=== PATIENT | male | born 1945 | race Caucasian/White ===

== ENCOUNTER → 2021-08-26 | Day surgery (SDC) | payer MEDICARE, BC ==
[~2021-08-26] MED LIST: Adenosine 6 MG/2 ML VIAL ONE; Fentanyl 100 MCG/2 ML VIAL ONE; Heparin 10,000 UNITS/ 10 ML VIAL ONE; Iopamidol 300 61% 100 ML VIAL FS ONE; Lidocaine 1% (PF) 30 ML VIAL ONE; Midazolam HCl 2 mg/2 ml Vial ONE; Nitroglycerin 50 MG/250 ML BOT 0 ML ONE; Sacubitril 49 MG/Valsartan 51 MG TABLET PO SCH; diphenhydrAMINE 50 MG/ML VIAL ONE; niCARdipine 25 MG/10 ML VIAL ONE
[2021-08-26 08:39] VITALS: BMI 35.3
== END ==
LOC: CSHSDC 08:22
PROVIDERS: ATTEND Specialist
DX: I25.118 Atherosclerotic heart disease of native coronary artery with other forms of angina pectoris (principal); T82.855A Stenosis of coronary artery stent, initial encounter; E11.21 Type 2 diabetes mellitus with diabetic nephropathy; I11.0 Hypertensive heart disease with heart failure; I50.42 Chronic combined systolic (congestive) and diastolic (congestive) heart failure; E78.2 Mixed hyperlipidemia; F32.A Depression, unspecified; I48.0 Paroxysmal atrial fibrillation; Z95.0 Presence of cardiac pacemaker; Z79.899 Other long term (current) drug therapy; Z79.4 Long term (current) use of insulin; Z79.02 Long term (current) use of antithrombotics/antiplatelets
CPT/HCPCS: 82962; 85347; 92937; 92978; 92979; 93459; C1726; C1753; C1760; C1769; C1874 ×2; C1887 ×2; 36416; 99152; 99153; J0153; J1200; J1644; J2001; J2250; J3010; Q9967

== ENCOUNTER 2023-02-15 13:21 | Outpatient (CLI) | payer MEDICARE, BC ==
[2023-02-15 15:38] LABS: Prothrombin Time 10.4 sec (9.5-12.1)
[2023-02-15 15:43] LABS: #Eosinphils 0.3 10x3/uL (0.0-0.5); #Monocytes 0.5 10x3/uL (0.0-1.1); #Neutrophils 4.2 10x3/uL (1.5-8.4); %Basophils 0.4 % (0.0-2.0); %Eosinophils 5.3 % (0.0-6.0); %Lymphocytes 11.3 % (18.0-47.0); %Monocytes 8.5 % (0.0-10.0); Hematocrit 31.9 % (38.8-50.0); Hemoglobin 10.9 g/dL (13.5-17.5); Mean Corpuscular HGB CONC 34.2 g/dL (32.0-36.0); Mean Corpuscular Hemoglobin 30.5 pg (27.0-33.0); Mean Corpuscular Volume 89.4 fl (81.2-95.1); Mean Platelet Volume 9.6 fl (7.4-10.4); Platelet Count 154 10x3/uL (150-450); RBC Distribution Width 12.2 % (11.5-14.5); Red Blood Cell (RBC) Count 3.57 10x6/uL (4.32-5.72); White Blood Cell (WBC) Count 5.7 10x3/uL (3.5-10.5)
[2023-02-15 15:44] LABS: Anion Gap 15 mmol/L (10-20); BUN (Urea Nitrogen) 52 mg/dL (8.4-25.7); Calc. Creatinine Clearance 0 mL/min (70-130); Calcium 8.8 mg/dL (7.8-10.44); Carbon Dioxide 23 mmol/L (23-31); Chloride 103 mmol/L (98-107); Estimated GFR 23; Glucose 159 mg/dL (83-110); Potassium 5.2 mmol/L (3.5-5.1); Sodium 136 mmol/L (136-145)
== END 2023-02-15 13:22 | disposition home or self-care (01) ==
LOC: CSHLAB 13:21
PROVIDERS: ATTEND Specialist
DX: Z01.818 Encounter for other preprocedural examination (principal)
CPT/HCPCS: 80048; 85025; 85610; 93005; 93010

== ENCOUNTER 2023-04-02 15:58 | Inpatient (IN) | payer MEDICARE, BC ==
[2023-04-02] MEDS ORDERED: Acetaminophen 500 MG TAB ONE (16:38)
[2023-04-02 16:52] LABS: Bilirubin Neg (Negative); Blood, Urine 150 (Negative); Clarity Cloudy (Clear); Glucose, Urine (Dipstick) 100 mg/dL (Negative); Ketone, Urine Negative (Negative); Leukocyte 25 (Negative); Nitrite Negative (Negative); Protein, Urine (Dipstick) 100 mg/dl (Neg-Trace)
[2023-04-02 16:52] LABS: Hematocrit 29.6 % (38.8-50.0); Hemoglobin 10.1 g/dL (13.5-17.5); Mean Corpuscular HGB CONC 34.1 g/dL (32.0-36.0); Mean Corpuscular Hemoglobin 30.4 pg (27.0-33.0); Mean Corpuscular Volume 89.2 fl (81.2-95.1); Mean Platelet Volume 9.8 fl (7.4-10.4); Platelet Count 141 10x3/uL (150-450); RBC Distribution Width 12.2 % (11.5-14.5); Red Blood Cell (RBC) Count 3.32 10x6/uL (4.32-5.72); White Blood Cell (WBC) Count 9.8 10x3/uL (3.5-10.5)
[2023-04-02 17:02] LABS: Bacteria/HPF 2+ HPF (None Seen); CAUTI Indications for Culture Fever or rigors; Squamous Epithelial 0-3 HPF (0-3); WBC/HPF 0-3 HPF (0-3)
[2023-04-02 17:03] LABS: Urine Culture Reflex No No
[2023-04-02 17:03] LABS: Anion Gap 16 mmol/L (10-20); BUN (Urea Nitrogen) 51 mg/dL (8.4-25.7); Bilirubin, Total 0.8 mg/dL (0.2-1.2); Calc. Creatinine Clearance 0 mL/min (70-130); Calcium 9.2 mg/dL (7.8-10.44); Carbon Dioxide 21 mmol/L (23-31); Chloride 100 mmol/L (98-107); Estimated GFR 22; Glucose 296 mg/dL (83-110); Potassium 4.5 mmol/L (3.5-5.1); Protein, Total 7.4 g/dL (5.8-8.1); Sodium 132 mmol/L (136-145)
[2023-04-02 17:04] LABS: ALT (SGPT) 20 U/L (8-55); AST (SGOT) 46 U/L (5-34); Albumin 3.7 g/dL (3.4-4.8); Alkaline Phosphatase 53 U/L (40-110); Globulin 3.7 g/dL (2.4-3.5)
[2023-04-02] MEDS ORDERED: Piperacillin/Tazobactam 4.5 GM VIAL ONE (17:11)
[2023-04-02] MEDS ORDERED: VANCOMYCIN 2 GRAM/400 ML BAG 2 GM in Premix 1 BAG IVPB SCH (17:15)
[2023-04-02 17:36] LABS: MDiff Complete? YES
[2023-04-02 17:38] LABS: Band 3 % (5-11); Lymphocytes 1 % (21-51); Monocytes 7 % (0-10); Neutrophil 89 % (42-75)
[2023-04-02 17:39] LABS: Platelet Adequacy Comment Appears Adequate; RBC Morph Comment Within Normal Limits; Vacuoles SLIGHT
[2023-04-02 17:50] LABS: SARS-CoV-2 NAA Rapid Test Not Detected (NotDetected)
[2023-04-02] MEDS ORDERED: Glucagon 1 MG/ML KIT IM PRN (19:29)
[2023-04-02] MEDS ORDERED: Senokot S 8.6-50 MG TAB PO PRN (19:29)
[2023-04-02] MEDS ORDERED: Ondansetron PF 4 MG/2 ML Vial IVP PRN (19:29)
[2023-04-02] MEDS ORDERED: Guaifenesin DM 100-10/5 ML UDCUP PO PRN (19:29)
[2023-04-02] MEDS ORDERED: Dextrose 50% Abboject 50 ML SYRINGE SLOW IVP PRN (19:29)
[2023-04-02] MEDS ORDERED: Dextrose 5% in Water 1,000 ML IV PRN (19:29)
[2023-04-02] MEDS ORDERED: Furosemide 40 MG TAB PO SCH (21:00)
[2023-04-02] MEDS ORDERED: Vancomycin Dose by Levels Sliding Scale (Wt > 99) FS SCH (21:00)
[2023-04-02] MEDS ORDERED: Cefepime 2 GM in Sodium Chloride 0.9% 100 ML IVPB SCH (21:00)
[2023-04-02] MEDS ORDERED: Simvastatin 10 MG TAB PO SCH (21:00)
[2023-04-02] MEDS ORDERED: Lantus 1000 UNITS/10 ML VIAL SC SCH ×2 (21:00→23:00)
[2023-04-02 21:53] LABS: Troponin I 1.532 ng/mL (< 0.028)
[2023-04-02] MEDS ORDERED: Carvedilol 3.125 MG TAB PO SCH (22:15)
[2023-04-02] MEDS ORDERED: Benzonatate 100 MG CAP ONE (22:30)
[2023-04-02] MEDS ORDERED: Furosemide 40 MG TAB ONE (22:30)
[2023-04-02] MEDS ORDERED: Carvedilol 3.125 MG TAB ONE (22:32)
[2023-04-02] MEDS ORDERED: Cholecalciferol 1,000 UNITS (25 MCG) TAB ONE (22:32)
[2023-04-02] MEDS: Benzonatate 100 MG CAP PO SCH (22:48)
[2023-04-02] MEDS: Carvedilol 3.125 MG TAB PO SCH (22:49)
[2023-04-02] MEDS: Cholecalciferol 1,000 UNITS (25 MCG) TAB PO SCH (22:49)
[2023-04-02] MEDS: Ranolazine 500 MG ER.TAB PO SCH (22:50)
[2023-04-02] MEDS ORDERED: Cefepime 2 GM VIAL ONE (22:54)
[2023-04-02] MEDS: Acetaminophen 325 MG TAB PO PRN (23:25)
[2023-04-02] MEDS ORDERED: Acetaminophen 325 MG TAB ONE (23:36)
[2023-04-03 02:19] VITALS: BMI 33.5
[2023-04-03] MEDS: HumaLOG 300 UNITS/3 ML VIAL SC PRN ×6 (02:39→20:15)
[2023-04-03 03:41] LABS: Legionella Urinary Ag Negative (Negative); Strep pneumo Urine Ag NEGATIVE (NEGATIVE)
[2023-04-03 04:36] LABS: Anion Gap 17 mmol/L (10-20); BUN (Urea Nitrogen) 60 mg/dL (8.4-25.7); Calc. Creatinine Clearance 32 mL/min (70-130); Calcium 8.5 mg/dL (7.8-10.44); Carbon Dioxide 18 mmol/L (23-31); Chloride 102 mmol/L (98-107); Estimated GFR 18; Glucose 279 mg/dL (83-110); Potassium 4.4 mmol/L (3.5-5.1); Sodium 133 mmol/L (136-145)
[2023-04-03 05:44] LABS: Band 18 % (5-11); Lymphocytes 7 % (21-51); Metamyelocyte 1 % (0-0); Monocytes 11 % (0-10)
[2023-04-03 05:45] LABS: Neutrophil 63 % (42-75); RBC Morph Comment Within Normal Limits
[2023-04-03 05:46] LABS: Platelet Adequacy Comment Appears Adequate
[2023-04-03 05:47] LABS: Hematocrit 26.6 % (38.8-50.0); Hemoglobin 8.9 g/dL (13.5-17.5); MDiff Complete? YES; Mean Corpuscular HGB CONC 33.5 g/dL (32.0-36.0); Mean Corpuscular Hemoglobin 30.2 pg (27.0-33.0); Mean Corpuscular Volume 90.2 fl (81.2-95.1); Mean Platelet Volume 9.9 fl (7.4-10.4); Platelet Count 129 10x3/uL (150-450); RBC Distribution Width 12.3 % (11.5-14.5); Red Blood Cell (RBC) Count 2.95 10x6/uL (4.32-5.72); White Blood Cell (WBC) Count 9.5 10x3/uL (3.5-10.5)
[2023-04-03] MEDS ORDERED: Vancomycin 1 GM in Premix 1 BAG IVPB SCH (07:00)
[2023-04-03] MEDS: Cefepime 1 GM in Sodium Chloride 0.9% 100 ML IVPB SCH ×2 (08:34→21:53)
[2023-04-03] MEDS: Albumin 25% 25 GM/100 ML BOT IVPB SCH ×2 (08:34→13:38)
[2023-04-03] MEDS: Benzonatate 100 MG CAP PO SCH ×3 (08:35→20:14)
[2023-04-03] MEDS: Ferrous Sulfate 325 MG TAB PO SCH (08:35)
[2023-04-03] MEDS: Ranolazine 500 MG ER.TAB PO SCH ×2 (08:35→20:15)
[2023-04-03] MEDS: Carvedilol 3.125 MG TAB PO SCH ×2 (08:35→20:16)
[2023-04-03] MEDS: Cholecalciferol 1,000 UNITS (25 MCG) TAB PO SCH ×2 (08:36→20:15)
[2023-04-03] MEDS: Ascorbic Acid 500 mg Chewable Tablet PO SCH (08:36)
[2023-04-03] MEDS ORDERED: Lantus 1000 UNITS/10 ML VIAL SC SCH ×2 (09:00→21:00)
[2023-04-03] MEDS ORDERED: Clopidogrel Bisulfate 75 MG TAB PO SCH ×2 (09:00→12:35)
[2023-04-03] MEDS ORDERED: Losartan 50 MG TAB PO SCH (09:00)
[2023-04-03 09:50] LABS: Troponin I 1.341 ng/mL (< 0.028)
[2023-04-03] MEDS ORDERED: EPOETIN ALFA-EPBX (ESRD) 10,000 UNITS/ML VIAL SC SCH (12:00)
[2023-04-03 12:29] LABS: Lactic Acid 0.8 mmol/L (0.5-2.2)
[2023-04-03 12:33] LABS: Anion Gap 15 mmol/L (10-20); BUN (Urea Nitrogen) 65 mg/dL (8.4-25.7); Calc. Creatinine Clearance 34 mL/min (70-130); Calcium 8.4 mg/dL (7.8-10.44); Carbon Dioxide 19 mmol/L (23-31); Chloride 104 mmol/L (98-107); Estimated GFR 19; Glucose 289 mg/dL (83-110); Potassium 4.6 mmol/L (3.5-5.1); Sodium 133 mmol/L (136-145)
[2023-04-03] MEDS: Vancomycin HCl 125 MG Capsule PO SCH (17:45)
[2023-04-03] MEDS: Calcium Carbonate 500 MG ChewTAB PO PRN (18:04)
[2023-04-03 18:46] LABS: Vancomycin, Random 10.4 ug/mL (See Comment)
[2023-04-03] MEDS ORDERED: Vancomycin 1 GM in Sodium Chloride 0.9% 250 ML 250 ML IVPB SCH (19:15)
[2023-04-03] MEDS: HYDROcodone/Acetaminophen 5/325 mg Tablet PO PRN (19:57)
[2023-04-03] MEDS: Famotidine 20 MG TAB PO SCH (20:15)
[2023-04-03] MEDS: Heparin 5,000 UNITS/ML VIAL SC SCH (22:05)
[2023-04-04] MEDS: Vancomycin HCl 125 MG Capsule PO SCH ×5 (01:33→23:29)
[2023-04-04 04:06] LABS: #Monocytes 0.6 10x3/uL (0.0-1.1); #Neutrophils 7.3 10x3/uL (1.5-8.4); %Basophils 0.2 % (0.0-2.0); %Eosinophils 0.2 % (0.0-6.0); %Lymphocytes 6.1 % (18.0-47.0); %Monocytes 7.3 % (0.0-10.0); %Neutrophils 85.7 % (40.0-75.0); Hematocrit 28.5 % (38.8-50.0); Hemoglobin 9.7 g/dL (13.5-17.5); Mean Corpuscular Hemoglobin 30.6 pg (27.0-33.0); Mean Corpuscular Volume 89.9 fl (81.2-95.1); Mean Platelet Volume 10.1 fl (7.4-10.4); Platelet Count 157 10x3/uL (150-450); RBC Distribution Width 12.5 % (11.5-14.5); Red Blood Cell (RBC) Count 3.17 10x6/uL (4.32-5.72); White Blood Cell (WBC) Count 8.5 10x3/uL (3.5-10.5)
[2023-04-04 04:16] LABS: ALT (SGPT) 24 U/L (8-55); AST (SGOT) 38 U/L (5-34); Albumin 3.6 g/dL (3.4-4.8); Alkaline Phosphatase 45 U/L (40-110); Anion Gap 19 mmol/L (10-20); BUN (Urea Nitrogen) 65 mg/dL (8.4-25.7); Bilirubin, Total 0.4 mg/dL (0.2-1.2); Calc. Creatinine Clearance 39 mL/min (70-130); Calcium 8.8 mg/dL (7.8-10.44); Carbon Dioxide 15 mmol/L (23-31); Chloride 100 mmol/L (98-107); Estimated GFR 22; Globulin 3.3 g/dL (2.4-3.5); Glucose 360 mg/dL (83-110); Potassium 4.5 mmol/L (3.5-5.1); Protein, Total 6.9 g/dL (5.8-8.1); Sodium 129 mmol/L (136-145)
[2023-04-04] MEDS: HYDROcodone/Acetaminophen 5/325 mg Tablet PO PRN ×3 (05:21→16:37)
[2023-04-04] MEDS: HumaLOG 300 UNITS/3 ML VIAL SC PRN ×5 (05:33→21:45)
[2023-04-04] MEDS ORDERED: Sodium Bicarbonate 150 MEQ in Dextrose 5% in Water 1,000 ML IV SCH (08:15)
[2023-04-04] MEDS: Heparin 5,000 UNITS/ML VIAL SC SCH ×2 (08:17→21:33)
[2023-04-04] MEDS: Benzonatate 100 MG CAP PO SCH ×3 (08:26→20:33)
[2023-04-04] MEDS: Saccharomyces boulardii 250 MG CAP PO SCH (08:26)
[2023-04-04] MEDS: Clopidogrel Bisulfate 75 MG TAB PO SCH ×2 (08:26→12:06)
[2023-04-04] MEDS: Ranolazine 500 MG ER.TAB PO SCH ×2 (08:26→20:33)
[2023-04-04] MEDS: Ferrous Sulfate 325 MG TAB PO SCH (08:27)
[2023-04-04] MEDS: Cholecalciferol 1,000 UNITS (25 MCG) TAB PO SCH ×2 (08:27→20:33)
[2023-04-04] MEDS: Carvedilol 3.125 MG TAB PO SCH (08:27)
[2023-04-04] MEDS: Ascorbic Acid 500 mg Chewable Tablet PO SCH (08:27)
[2023-04-04] MEDS: Cefepime 1 GM in Sodium Chloride 0.9% 100 ML IVPB SCH ×2 (08:28→21:33)
[2023-04-04] MEDS ORDERED: Sodium Bicarbonate 150 MEQ, Admixture Fee 1 EACH in Dextrose 5% in Water 1,000 ML IV SCH (09:00)
[2023-04-04] MEDS ORDERED: Furosemide 40 MG/4 ML VIAL SLOW IVP SCH (09:00)
[2023-04-04] MEDS ORDERED: Lantus 1000 UNITS/10 ML VIAL SC SCH (09:00)
[2023-04-04] MEDS ORDERED: Carvedilol 6.25 MG TAB PO SCH (10:00)
[2023-04-04] MEDS: Calcium Carbonate 500 MG ChewTAB PO PRN (13:17)
[2023-04-04] MEDS: Carvedilol 6.25 MG TAB PO SCH (17:00)
[2023-04-04 18:23] LABS: Vancomycin, Random 11.1 ug/mL (See Comment)
[2023-04-04] MEDS ORDERED: Vancomycin 1 GM in Sodium Chloride 0.9% 250 ML 250 ML IVPB SCH (19:00)
[2023-04-04] MEDS: Lantus 1000 UNITS/10 ML VIAL SC SCH (20:33)
[2023-04-04] MEDS: Famotidine 20 MG TAB PO SCH (20:33)
[2023-04-05] MEDS: Acetaminophen 325 MG TAB PO PRN ×2 (01:25→08:48)
[2023-04-05] MEDS: HumaLOG 300 UNITS/3 ML VIAL SC PRN ×5 (01:25→17:26)
[2023-04-05] MEDS ORDERED: Pregabalin 50 MG CAP PO SCH ×2 (02:00→11:30)
[2023-04-05] MEDS ORDERED: Furosemide 100 MG/10 ML VIAL SLOW IVP SCH (02:00)
[2023-04-05 03:31] LABS: #Monocytes 0.6 10x3/uL (0.0-1.1); #Neutrophils 6.7 10x3/uL (1.5-8.4); %Basophils 0.1 % (0.0-2.0); %Eosinophils 0.1 % (0.0-6.0); %Lymphocytes 4.9 % (18.0-47.0); %Monocytes 7.4 % (0.0-10.0); %Neutrophils 87.1 % (40.0-75.0); Hematocrit 25.4 % (38.8-50.0); Hemoglobin 8.7 g/dL (13.5-17.5); Mean Corpuscular HGB CONC 34.3 g/dL (32.0-36.0); Mean Corpuscular Hemoglobin 29.5 pg (27.0-33.0); Mean Corpuscular Volume 86.1 fl (81.2-95.1); Mean Platelet Volume 9.9 fl (7.4-10.4); Platelet Count 161 10x3/uL (150-450); RBC Distribution Width 12.4 % (11.5-14.5); Red Blood Cell (RBC) Count 2.95 10x6/uL (4.32-5.72); White Blood Cell (WBC) Count 7.7 10x3/uL (3.5-10.5)
[2023-04-05 03:46] LABS: ALT (SGPT) 26 U/L (8-55); AST (SGOT) 32 U/L (5-34); Albumin 3.4 g/dL (3.4-4.8); Alkaline Phosphatase 40 U/L (40-110); Anion Gap 15 mmol/L (10-20); BUN (Urea Nitrogen) 65 mg/dL (8.4-25.7); Bilirubin, Total 0.4 mg/dL (0.2-1.2); Calc. Creatinine Clearance 47 mL/min (70-130); Calcium 8.6 mg/dL (7.8-10.44); Carbon Dioxide 18 mmol/L (23-31); Chloride 101 mmol/L (98-107); Estimated GFR 28; Glucose 264 mg/dL (83-110); Magnesium 1.9 mg/dL (1.6-2.6); Potassium 4.2 mmol/L (3.5-5.1); Protein, Total 6.4 g/dL (5.8-8.1); Sodium 130 mmol/L (136-145)
[2023-04-05] MEDS: Vancomycin HCl 125 MG Capsule PO SCH ×4 (05:39→23:16)
[2023-04-05] MEDS: Heparin 5,000 UNITS/ML VIAL SC SCH ×2 (08:42→20:53)
[2023-04-05] MEDS: Saccharomyces boulardii 250 MG CAP PO SCH (08:45)
[2023-04-05] MEDS: HYDROcodone/Acetaminophen 5/325 mg Tablet PO PRN (08:46)
[2023-04-05] MEDS: Carvedilol 6.25 MG TAB PO SCH ×2 (08:48→17:01)
[2023-04-05] MEDS: Ascorbic Acid 500 mg Chewable Tablet PO SCH (08:48)
[2023-04-05] MEDS: Ranolazine 500 MG ER.TAB PO SCH ×2 (08:48→20:53)
[2023-04-05] MEDS: Cholecalciferol 1,000 UNITS (25 MCG) TAB PO SCH ×2 (08:49→20:51)
[2023-04-05] MEDS: Ferrous Sulfate 325 MG TAB PO SCH (08:49)
[2023-04-05] MEDS: Benzonatate 100 MG CAP PO SCH ×3 (08:49→20:52)
[2023-04-05] MEDS: Clopidogrel Bisulfate 75 MG TAB PO SCH (08:49)
[2023-04-05] MEDS: Lantus 1000 UNITS/10 ML VIAL SC SCH ×2 (08:50→20:59)
[2023-04-05] MEDS: Cefepime 1 GM in Sodium Chloride 0.9% 100 ML IVPB SCH ×2 (09:30→20:52)
[2023-04-05] MEDS: Furosemide 40 MG TAB PO SCH (13:55)
[2023-04-05 15:36] LABS: Anion Gap 15 mmol/L (10-20); BUN (Urea Nitrogen) 67 mg/dL (8.4-25.7); Calc. Creatinine Clearance 45 mL/min (70-130); Calcium 8.8 mg/dL (7.8-10.44); Carbon Dioxide 21 mmol/L (23-31); Chloride 100 mmol/L (98-107); Estimated GFR 26; Glucose 204 mg/dL (83-110); Potassium 4.1 mmol/L (3.5-5.1); Sodium 132 mmol/L (136-145)
[2023-04-05] MEDS: Pregabalin 50 MG CAP PO SCH (20:51)
[2023-04-05] MEDS: Famotidine 20 MG TAB PO SCH (20:52)
[2023-04-06] MEDS: Vancomycin HCl 125 MG Capsule PO SCH ×3 (05:34→17:14)
[2023-04-06 05:57] LABS: #Eosinphils 0.1 10x3/uL (0.0-0.5); #Monocytes 0.6 10x3/uL (0.0-1.1); #Neutrophils 5.7 10x3/uL (1.5-8.4); %Basophils 0.3 % (0.0-2.0); %Eosinophils 1.3 % (0.0-6.0); %Lymphocytes 6.5 % (18.0-47.0); %Monocytes 8.4 % (0.0-10.0); %Neutrophils 83.1 % (40.0-75.0); Hematocrit 27.8 % (38.8-50.0); Hemoglobin 9.4 g/dL (13.5-17.5); Mean Corpuscular HGB CONC 33.8 g/dL (32.0-36.0); Mean Corpuscular Hemoglobin 29.5 pg (27.0-33.0); Mean Corpuscular Volume 87.1 fl (81.2-95.1); Mean Platelet Volume 9.8 fl (7.4-10.4); Platelet Count 173 10x3/uL (150-450); RBC Distribution Width 12.6 % (11.5-14.5); Red Blood Cell (RBC) Count 3.19 10x6/uL (4.32-5.72); White Blood Cell (WBC) Count 6.9 10x3/uL (3.5-10.5)
[2023-04-06 06:08] LABS: Anion Gap 16 mmol/L (10-20); BUN (Urea Nitrogen) 62 mg/dL (8.4-25.7); Calc. Creatinine Clearance 49 mL/min (70-130); Carbon Dioxide 20 mmol/L (23-31); Chloride 101 mmol/L (98-107); Estimated GFR 29; Glucose 220 mg/dL (83-110); Magnesium 1.9 mg/dL (1.6-2.6); Potassium 4.2 mmol/L (3.5-5.1); Sodium 133 mmol/L (136-145)
[2023-04-06] MEDS: HumaLOG 300 UNITS/3 ML VIAL SC PRN ×4 (06:26→22:09)
[2023-04-06] MEDS: Lantus 1000 UNITS/10 ML VIAL SC SCH (09:01)
[2023-04-06] MEDS: Heparin 5,000 UNITS/ML VIAL SC SCH ×2 (09:02→22:08)
[2023-04-06] MEDS: Benzonatate 100 MG CAP PO SCH ×3 (09:02→22:05)
[2023-04-06] MEDS: Furosemide 40 MG TAB PO SCH ×2 (09:02→14:14)
[2023-04-06] MEDS: Carvedilol 6.25 MG TAB PO SCH ×2 (09:02→17:13)
[2023-04-06] MEDS: Saccharomyces boulardii 250 MG CAP PO SCH (09:02)
[2023-04-06] MEDS: Ranolazine 500 MG ER.TAB PO SCH ×2 (09:02→22:08)
[2023-04-06] MEDS: Pregabalin 50 MG CAP PO SCH ×2 (09:02→22:08)
[2023-04-06] MEDS: Ferrous Sulfate 325 MG TAB PO SCH (09:03)
[2023-04-06] MEDS: Cholecalciferol 1,000 UNITS (25 MCG) TAB PO SCH ×2 (09:03→22:06)
[2023-04-06] MEDS: Clopidogrel Bisulfate 75 MG TAB PO SCH (09:03)
[2023-04-06] MEDS: Ascorbic Acid 500 mg Chewable Tablet PO SCH (09:03)
[2023-04-06] MEDS: Cefepime 1 GM in Sodium Chloride 0.9% 100 ML IVPB SCH ×2 (09:03→22:05)
[2023-04-06] MEDS ORDERED: Magnesium 2 GM/50 ML(in water) 2 GM in Premix 1 BAG IVPB SCH (10:00)
[2023-04-06] MEDS ORDERED: Lantus 1000 UNITS/10 ML VIAL SC SCH (21:00)
[2023-04-06] MEDS: Famotidine 20 MG TAB PO SCH (22:06)
[2023-04-07] MEDS: Vancomycin HCl 125 MG Capsule PO SCH ×4 (02:02→17:05)
[2023-04-07 05:30] LABS: #Eosinphils 0.2 10x3/uL (0.0-0.5); #Monocytes 0.6 10x3/uL (0.0-1.1); %Basophils 0.4 % (0.0-2.0); %Eosinophils 3.8 % (0.0-6.0); %Lymphocytes 8.9 % (18.0-47.0); %Monocytes 11.1 % (0.0-10.0); %Neutrophils 74.7 % (40.0-75.0); Hematocrit 25.1 % (38.8-50.0); Hemoglobin 8.5 g/dL (13.5-17.5); Mean Corpuscular HGB CONC 33.9 g/dL (32.0-36.0); Mean Corpuscular Hemoglobin 29.9 pg (27.0-33.0); Mean Corpuscular Volume 88.4 fl (81.2-95.1); Mean Platelet Volume 10.2 fl (7.4-10.4); Platelet Count 202 10x3/uL (150-450); RBC Distribution Width 12.5 % (11.5-14.5); Red Blood Cell (RBC) Count 2.84 10x6/uL (4.32-5.72); White Blood Cell (WBC) Count 5.3 10x3/uL (3.5-10.5)
[2023-04-07 05:45] LABS: Anion Gap 14 mmol/L (10-20); BUN (Urea Nitrogen) 64 mg/dL (8.4-25.7); CRP (Inflammatory) 23.94 mg/dL (= or < 0.5); Calc. Creatinine Clearance 49 mL/min (70-130); Calcium 8.6 mg/dL (7.8-10.44); Carbon Dioxide 20 mmol/L (23-31); Chloride 102 mmol/L (98-107); Estimated GFR 29; Glucose 234 mg/dL (83-110); Potassium 4.2 mmol/L (3.5-5.1); Sodium 132 mmol/L (136-145)
[2023-04-07] MEDS: Heparin 5,000 UNITS/ML VIAL SC SCH ×2 (10:16→20:55)
[2023-04-07] MEDS: Ranolazine 500 MG ER.TAB PO SCH ×2 (10:16→20:54)
[2023-04-07] MEDS: Cholecalciferol 1,000 UNITS (25 MCG) TAB PO SCH ×2 (10:17→20:54)
[2023-04-07] MEDS: Carvedilol 6.25 MG TAB PO SCH ×2 (10:17→16:16)
[2023-04-07] MEDS: Furosemide 40 MG TAB PO SCH (10:17)
[2023-04-07] MEDS: Ferrous Sulfate 325 MG TAB PO SCH (10:17)
[2023-04-07] MEDS: Clopidogrel Bisulfate 75 MG TAB PO SCH (10:17)
[2023-04-07] MEDS: Ascorbic Acid 500 mg Chewable Tablet PO SCH (10:18)
[2023-04-07] MEDS: Cefepime 1 GM in Sodium Chloride 0.9% 100 ML IVPB SCH ×2 (10:18→20:52)
[2023-04-07] MEDS: Benzonatate 100 MG CAP PO SCH ×3 (10:18→20:54)
[2023-04-07] MEDS: Pregabalin 50 MG CAP PO SCH ×2 (10:19→20:52)
[2023-04-07] MEDS: Saccharomyces boulardii 250 MG CAP PO SCH (10:19)
[2023-04-07] MEDS: Lantus 1000 UNITS/10 ML VIAL SC SCH (10:20)
[2023-04-07] MEDS: HumaLOG 300 UNITS/3 ML VIAL SC PRN ×3 (11:43→16:17)
[2023-04-07] MEDS: HYDROcodone/Acetaminophen 5/325 mg Tablet PO PRN ×2 (11:49→19:58)
[2023-04-07] MEDS: Torsemide 20 MG TAB PO SCH (15:30)
[2023-04-07] MEDS: Famotidine 20 MG TAB PO SCH (20:53)
[2023-04-07] MEDS ORDERED: Lantus 1000 UNITS/10 ML VIAL SC SCH (21:00)
[2023-04-08] MEDS: Vancomycin HCl 125 MG Capsule PO SCH ×3 (00:09→11:57)
[2023-04-08 04:17] LABS: #Eosinphils 0.2 10x3/uL (0.0-0.5); #Monocytes 0.4 10x3/uL (0.0-1.1); #Neutrophils 2.9 10x3/uL (1.5-8.4); %Basophils 0.5 % (0.0-2.0); %Eosinophils 5.9 % (0.0-6.0); %Lymphocytes 10.6 % (18.0-47.0); %Monocytes 10.8 % (0.0-10.0); %Neutrophils 71.2 % (40.0-75.0); Hemoglobin 8.6 g/dL (13.5-17.5); Mean Corpuscular HGB CONC 34.4 g/dL (32.0-36.0); Mean Corpuscular Volume 87.1 fl (81.2-95.1); Platelet Count 244 10x3/uL (150-450); RBC Distribution Width 12.6 % (11.5-14.5); Red Blood Cell (RBC) Count 2.87 10x6/uL (4.32-5.72); White Blood Cell (WBC) Count 4.1 10x3/uL (3.5-10.5)
[2023-04-08 04:27] LABS: Anion Gap 17 mmol/L (10-20); BUN (Urea Nitrogen) 61 mg/dL (8.4-25.7); Calc. Creatinine Clearance 56 mL/min (70-130); Calcium 8.7 mg/dL (7.8-10.44); Carbon Dioxide 19 mmol/L (23-31); Chloride 103 mmol/L (98-107); Estimated GFR 34; Glucose 205 mg/dL (83-110); Potassium 4.1 mmol/L (3.5-5.1); Sodium 135 mmol/L (136-145)
[2023-04-08] MEDS: Cefepime 1 GM in Sodium Chloride 0.9% 100 ML IVPB SCH (08:53)
[2023-04-08] MEDS: Benzonatate 100 MG CAP PO SCH (08:58)
[2023-04-08] MEDS ORDERED: Lantus 1000 UNITS/10 ML VIAL SC SCH (09:00)
[2023-04-08] MEDS: Pregabalin 50 MG CAP PO SCH (09:00)
[2023-04-08] MEDS: Saccharomyces boulardii 250 MG CAP PO SCH (09:00)
[2023-04-08] MEDS: Ranolazine 500 MG ER.TAB PO SCH (09:01)
[2023-04-08] MEDS: Ascorbic Acid 500 mg Chewable Tablet PO SCH (09:01)
[2023-04-08] MEDS: Cholecalciferol 1,000 UNITS (25 MCG) TAB PO SCH (09:01)
[2023-04-08] MEDS: Clopidogrel Bisulfate 75 MG TAB PO SCH (09:01)
[2023-04-08] MEDS: Torsemide 20 MG TAB PO SCH (09:01)
[2023-04-08] MEDS: Ferrous Sulfate 325 MG TAB PO SCH (09:01)
[2023-04-08] MEDS: Carvedilol 6.25 MG TAB PO SCH (09:02)
[2023-04-08] MEDS: HumaLOG 300 UNITS/3 ML VIAL SC PRN (09:08)
[2023-04-08 09:50] VITALS: BP 137/73; TEMP 98.5
[2023-04-08] MEDS: Heparin 5,000 UNITS/ML VIAL SC SCH (10:15)
== END 2023-04-08 12:40 | disposition home or self-care (01) | DRG 871 ==
LOC: CSHERS 15:58 → CSHERHOLD 19:29 → CSHIMCU 04-03 01:38 → CSHTELE 04-06 20:25
PROVIDERS: ADMIT Student in an Organized Health Care Education/Training Program; ATTEND Internal Medicine
PROC: 3E03329 Introduction of Other Anti-infective into Peripheral Vein, Percutaneous Approach (ICD-10-PCS; principal; 2023-04-02)
PROC: 5A09457 Assistance with Respiratory Ventilation, 24-96 Consecutive Hours, Continuous Positive Airway Pressure (ICD-10-PCS; 2023-04-05)
DX: A41.9 Sepsis, unspecified organism (principal); I21.A1 Myocardial infarction type 2; J15.9 Unspecified bacterial pneumonia; J96.01 Acute respiratory failure with hypoxia; I13.0 Hypertensive heart and chronic kidney disease with heart failure and stage 1 through stage 4 chronic kidney disease, or unspecified chronic kidney disease; I50.42 Chronic combined systolic (congestive) and diastolic (congestive) heart failure; N18.4 Chronic kidney disease, stage 4 (severe); N17.9 Acute kidney failure, unspecified; E87.1 Hypo-osmolality and hyponatremia; E87.20 Acidosis, unspecified; A04.72 Enterocolitis due to Clostridium difficile, not specified as recurrent; N20.1 Calculus of ureter; I25.10 Atherosclerotic heart disease of native coronary artery without angina pectoris; I48.0 Paroxysmal atrial fibrillation; E11.22 Type 2 diabetes mellitus with diabetic chronic kidney disease; G47.33 Obstructive sleep apnea (adult) (pediatric); I49.5 Sick sinus syndrome; D63.1 Anemia in chronic kidney disease; R53.81 Other malaise; R65.20 Severe sepsis without septic shock; E66.01 Morbid (severe) obesity due to excess calories; E83.42 Hypomagnesemia; M54.50 Low back pain, unspecified; G89.29 Other chronic pain; K80.20 Calculus of gallbladder without cholecystitis without obstruction; M54.16 Radiculopathy, lumbar region; E78.2 Mixed hyperlipidemia; Z98.890 Other specified postprocedural states; Z79.899 Other long term (current) drug therapy; Z68.33 Body mass index [BMI] 33.0-33.9, adult; Z89.022 Acquired absence of left finger(s); Z95.1 Presence of aortocoronary bypass graft; Z80.9 Family history of malignant neoplasm, unspecified; Z88.8 Allergy status to other drugs, medicaments and biological substances; Z95.5 Presence of coronary angioplasty implant and graft; I25.2 Old myocardial infarction; Z95.0 Presence of cardiac pacemaker; Z79.01 Long term (current) use of anticoagulants; Z79.4 Long term (current) use of insulin; Z87.891 Personal history of nicotine dependence; Z11.52 Encounter for screening for COVID-19
CPT/HCPCS: 36415; 36416; 71045; 74176; 80048; 80053; 80202; 81001; 82533; 83605; 83735; 83880; 84145; 84484; 85025; 86140; 87040; 87081; 87324; 87449; 87493; 87899; 93005; 93010; 93306; 94660; 94760; 94762; 96374; 96375; J0692; J1644; J1650; J1815; J1940; J2543; J3370; J3475; J3490; J7050; J7070; P9047; Q5105